=== PATIENT | male | born 1945 | race Caucasian/White ===

== ENCOUNTER 2020-04-11 17:22 | Emergency (ER) | payer MEDICARE, OTHER ==
[2020-04-11] MEDS ORDERED: ATROPINE SYRINGE 0.1 MG/ML, 10ML ONE (17:30)
[2020-04-11] MEDS ORDERED: CODE BLUE RESPONSE XX ONE (17:30)
[2020-04-11] MEDS ORDERED: EPINEPHRINE SYRINGE 0.1 MG/ML, 10ML ONE (17:30)
--- NOTE | 2020-04-11 17:38 | NUR ---
74 Y/O MALE BIB AMBULANCE UNRESPONSIVE. CPR ACTIVE UPON ARRIVAL. PER REPORT PT WAS FOUND UNRESPONSIVE IN CAR. PER REPORT FRIEND HAD SAID HE WAS UP WALKING AROUND ABOUT 15 MINS PRIOR TO BEING FOUND IN CAR. IO ESTABLISHED. PRIOR TO ARRIVAL 3 ROUNDS OF EPI WAS GIVEN PT WAS IN ASYSTOLE THE WHOLE TIME. PER REPORT FROM EMS, SKIN TEARS WERE FROM GETTING PT OUT OF CAR. PT HAS HEALING WOUND ON ABDOMEN. PT PRESENTED WITH LMA IN PLACE. CODE CONTINUED UPON ARRIVAL. SEE CODE SHEET.
--- NOTE | 2020-04-11 18:58 | NUR ---
PT HAD DECORATIVE SILVER COLLAR TIPS ON HIS SHIRT. I REMOVED THE TIPS AND GAVE THEM TO SECURITY TO PLACE IN SAFE KEEPING. I ATTEMPTED TO CONTACT SON AT [phone] AND [phone] WITH NO SUCCESS.
--- NOTE | 2020-04-11 19:06 | NUR ---
LATE ENTRY 1800 SOME BELONGINGS WERE GIVEN TO SON. MONEY CLIP WITH $105 [employer] BLACK LEATHER BELT WITH BUCKLE WALLET WITH ALL CONTENTS TWO SETS OF KEYS CARD BILLFOLD WITH BUSINESS CARDS WATCH POCKET KNIFE.
== END 2020-04-11 19:13 | disposition expired ==
LOC: ED 19:05
DX: I46.9 Cardiac arrest, cause unspecified (principal); I10 Essential (primary) hypertension; E78.00 Pure hypercholesterolemia, unspecified; I48.91 Unspecified atrial fibrillation; M10.9 Gout, unspecified
CPT/HCPCS: 82962; 92950; 99285; J0461